=== PATIENT | male | born 1965 | race Caucasian/White ===

== ENCOUNTER 2022-08-03 12:42 | Emergency (ER) | payer OTHER ==
[~2022-08-03] VITALS: Ht 175.3 cm; Wt 100.0 kg
[2022-08-03] MEDS ORDERED: KETOROLAC TROMETH 30 MG/ML 1ML VIAL IM ONE (16:00)
[2022-08-03 16:47] LABS: Basophils # (auto) 0.1 10 ^3/uL (0-0.2); Eosinophils # (auto) 0.2 10 ^3/uL (0-0.8); Eosinophils % (auto) 2.1 % (0.0-7.0); Hematocrit 45.4 % (41.0-53.0); Hemoglobin 15.4 g/dL (13.5-17.5); Lymphocytes # (auto) 1.8 10 ^3/uL (0.4-5.4); Lymphocytes % (auto) 16.6 % (10.0-50.0); Mean Corpuscular Hemoglobin 28.4 pg (28.0-32.0); Mean Corpuscular Volume 83.5 fL (80.0-100.0); Monocytes # (auto) 0.9 10 ^3/uL (0-1.3); Monocytes % (auto) 7.8 % (0.0-12.0); Neutrophils # (auto) 7.9 10 ^3/uL (1.6-8.6); Neutrophils % (auto) 72.5 % (37.0-80.0); Nucleated Red Blood Cells % 0.1 %; Red Blood Cells 5.44 10^6/uL (4.5-5.90); Red Cell Distribution Width 17.9 % (11.8-14.3); White Blood Cell 10.9 10^3/uL (4.4-10.8)
[2022-08-03 17:18] LABS: Albumin 4.1 g/dL (3.4-5.0); Calcium 8.7 mg/dL (8.5-10.1); Potassium 3.8 mmol/L (3.5-5.1)
[2022-08-03 17:24] LABS: BUN/Creatinine Ratio 15.2; Bilirubin, Total 0.4 mg/dL (0.2-1.0); Lactic Acid w/Reflex 2.5 mmol/L (0.4-2.0); Total Protein 8.1 g/dL (6.4-8.2)
[2022-08-03] MEDS ORDERED: SODIUM CHLORIDE 0.9% 1,000 ML IV ONE (18:00)
[2022-08-03] MEDS ORDERED: cefTRIAXone SOD 1,000 MG VL IM ONE (18:00)
[2022-08-03] MEDS ORDERED: CEPH-510 PO (20:39)
[2022-08-03 20:55] VITALS: BP 147/83
== END 2022-08-03 21:05 | disposition home or self-care (01) ==
LOC: ER 12:42
DX: L72.3 Sebaceous cyst (principal); L03.312 Cellulitis of back [any part except buttock and flank]; F32.9 Major depressive disorder, single episode, unspecified
CPT/HCPCS: 36415; 80053; 83605; 85025; 96360; 96361; 96372; 99284; J0696; J1885